=== PATIENT | male | born 1950 | race Caucasian/White ===

== ENCOUNTER 2024-01-25 13:59 | Inpatient (IN) | payer OTHER, MEDICARE ==
[~2024-01-25] VITALS: Ht 182.9 cm; Wt 86.2 kg
[2024-01-25 14:10] VITALS: BP_SYST 136; PULSE 77; RESP 18; TEMP 98; O2SAT 95
[2024-01-25 15:38] LABS: BASOPHILS # (AUTO) 0.1 K/uL (0.0-0.2); BASOPHILS % (AUTO) 0.7 % (0.0-2.0); EOSINOPHILS # (AUTO) 0.1 K/uL (0.0-0.4); HEMATOCRIT 42.9 % (36-54); HEMOGLOBIN 14.9 g/dL (14.0-18.0); LYMPHOCYTES # (AUTO) 1.6 K/uL (1.0-5.5); LYMPHOCYTES % (AUTO) 12.6 % (20.5-51.5); MEAN CORPUSCULAR HEMOGLOBIN 34 pg (27-31); MEAN CORPUSCULAR HGB CONC 35 % (32-36); MEAN CORPUSCULAR VOLUME 99 fL (79.0-98.0); MONOCYTES # (AUTO) 1.4 K/uL (0.0-1.0); MONOCYTES % (AUTO) 11.5 % (1.7-9.3); NEUTROPHILS # (AUTO) 9.2 K/uL (1.8-7.7); NEUTROPHILS % (AUTO) 74.2 % (40.0-70.0); PLATELET COUNT (AUTO) 208 K/uL (130-430); RED BLOOD CELL COUNT(AUTO) 4.35 MIL/uL (4.2-6.2); RED CELL DISTRIBUTION WIDTH 12.7 % (9.0-15.0); WHITE BLOOD COUNT (AUTO) 12.4 K/uL (4.8-10.8)
[2024-01-25 15:45] LABS: INR 1.1 (0.80-1.20); PROTHROMBIN TIME 11.7 SECS (9.5-12.5)
[2024-01-25 15:49] LABS: ANION GAP 10 (5-15); CALCIUM 9.2 mg/dL (8.4-11.0); CARBON DIOXIDE 27 mmol/L (23-29); CHLORIDE 100 mmol/L (98-107); CREATINE KINASE, TOTAL 154 U/L (39-308); CREATININE 1.01 mg/dL (0.55-1.30); GLUCOSE 158 mg/dL (74-106); POTASSIUM 4.1 mmol/L (3.5-5.1); SODIUM SERUM 137 mmol/L (136-145); UREA NITROGEN, BLOOD 15 mg/dL (8-21)
[2024-01-25] MEDS ORDERED: ONDANSETRON HCL 4 MG/2 ML VIAL IVP PRN (17:30)
[2024-01-25] MEDS ORDERED: ZOLPIDEM TARTRATE 5 MG TABLET PO PRN (17:30)
[2024-01-25] MEDS ORDERED: LORazepam 2 MG/ML VIAL IVP PRN (17:30)
[2024-01-25] MEDS ORDERED: ACETAMINOPHEN 325 MG TABLET PO PRN ×2 (17:30→17:45)
[2024-01-25] MEDS ORDERED: cefTRIAXone 1 GM VIAL ONE (17:35)
[2024-01-25] MEDS: cefTRIAXone 1 GM in D5W 50 ML IV ONE (17:40)
[2024-01-25] MEDS ORDERED: AZIT-93 PO (17:44)
[2024-01-25 17:51] VITALS: BP_SYST 132; PULSE 79; O2SAT 95
[2024-01-25 17:54] LABS: BILIRUBIN,URINE NEGATIVE (NEGATIVE); BLOOD, URINE NEGATIVE (NEGATIVE); CLARITY/URINE CLEAR (CLEAR); COLOR,URINE YELLOW (YELLOW); GLUCOSE,URINE NEGATIVE (NEGATIVE); KETONES,URINE TRACE (NEGATIVE); LEUKOCYTE ESTERASE ,URINE NEGATIVE (NEGATIVE); NITRITE, URINE NEGATIVE (NEGATIVE); PH,URINE 6.5 (5.0-8.0); PROTEIN URINE NEGATIVE (NEGATIVE); UROBILINOGEN,URINE 0.2 (0.2-1.0)
[2024-01-25] MEDS: HYDROcodone/ACETAMIN 5-325 MG TAB (NORCO/ VICODIN) PO PRN (18:33)
[2024-01-25] MEDS: NACL 0.9% 1,000 ML IV SCH (18:38)
[2024-01-25 19:20] VITALS: O2SAT 97
[2024-01-25] MEDS ORDERED: ALBUTEROL (19:20)
[2024-01-25] MEDS ORDERED: IPRA4AER INH (19:20)
[2024-01-25] MEDS: IPRATROPIUM BROM 0.5 MG/2.5 ML VIAL.NEB (ATROVENT) INH PRN (19:25)
[2024-01-25] MEDS: ALBUTEROL SULFATE 0.083% 2.5 MG/3 ML VIAL.NEB INH PRN (19:25)
[2024-01-25 20:45] VITALS: BP_SYST 129; PULSE 77; RESP 18; TEMP 97.5; O2SAT 96
[2024-01-25 23:45] VITALS: O2SAT 97
[2024-01-26] VITALS (10 sets, daily range): BP systolic 90–123; PULSE 69–80; RESP 16–20; TEMP 97–99.1; O2SAT 94–95
[2024-01-26 06:00] LABS: BASOPHILS % (AUTO) 0.6 % (0.0-2.0); EOSINOPHILS # (AUTO) 0.2 K/uL (0.0-0.4); EOSINOPHILS % (AUTO) 2.3 % (0.0-4.0); HEMATOCRIT 39.1 % (36-54); HEMOGLOBIN 13.7 g/dL (14.0-18.0); LYMPHOCYTES # (AUTO) 1.5 K/uL (1.0-5.5); LYMPHOCYTES % (AUTO) 19.1 % (20.5-51.5); MEAN CORPUSCULAR HEMOGLOBIN 35 pg (27-31); MEAN CORPUSCULAR HGB CONC 35 % (32-36); MEAN CORPUSCULAR VOLUME 99 fL (79.0-98.0); MONOCYTES % (AUTO) 12.9 % (1.7-9.3); NEUTROPHILS # (AUTO) 5.2 K/uL (1.8-7.7); NEUTROPHILS % (AUTO) 65.1 % (40.0-70.0); PLATELET COUNT (AUTO) 163 K/uL (130-430); RED BLOOD CELL COUNT(AUTO) 3.93 MIL/uL (4.2-6.2); RED CELL DISTRIBUTION WIDTH 12.4 % (9.0-15.0)
[2024-01-26 06:48] LABS: ALANINE AMINOTRANSFERASE 28 U/L (12-78); ALBUMIN 2.9 g/dL (3.4-4.8); ANION GAP 8 (5-15); ASPARTATE AMINOTRANSFERASE 17 U/L (10-37); CALCIUM 8.1 mg/dL (8.4-11.0); CARBON DIOXIDE 27 mmol/L (23-29); CHLORIDE 104 mmol/L (98-107); CREATININE 0.77 mg/dL (0.55-1.30); GLUCOSE 144 mg/dL (74-106); POTASSIUM 3.7 mmol/L (3.5-5.1); SODIUM SERUM 139 mmol/L (136-145); TOTAL PROTEIN, SERUM 6.1 g/dL (6.4-8.3); UREA NITROGEN, BLOOD 12 mg/dL (8-21)
[2024-01-26] MEDS: HYDROmorphone 2 MG/ML VIAL ONE (09:46)
[2024-01-26] MEDS: AZITHROMYCIN 250 MG TABLET PO SCH (14:54)
[2024-01-26] MEDS: HEPARIN SODIUM,PORCINE 5,000 UNITS/ML VIAL SUBCUT SCH (21:00)
[2024-01-27] VITALS: BP_SYST 128; PULSE 74; RESP 16; TEMP 98.6; O2SAT 93
[2024-01-27] MEDS: guaiFENesin/DEXTROMETHORPHAN 1 EACH TAB.ER.12H PO PRN (04:51)
[2024-01-27 06:02] LABS: BASOPHILS # (AUTO) 0.1 K/uL (0.0-0.2); BASOPHILS % (AUTO) 1.2 % (0.0-2.0); EOSINOPHILS # (AUTO) 0.2 K/uL (0.0-0.4); HEMATOCRIT 39.2 % (36-54); HEMOGLOBIN 13.7 g/dL (14.0-18.0); LYMPHOCYTES # (AUTO) 1.5 K/uL (1.0-5.5); LYMPHOCYTES % (AUTO) 18.8 % (20.5-51.5); MEAN CORPUSCULAR HEMOGLOBIN 35 pg (27-31); MEAN CORPUSCULAR HGB CONC 35 % (32-36); MEAN CORPUSCULAR VOLUME 99 fL (79.0-98.0); MONOCYTES % (AUTO) 12.6 % (1.7-9.3); NEUTROPHILS # (AUTO) 5.3 K/uL (1.8-7.7); NEUTROPHILS % (AUTO) 64.4 % (40.0-70.0); PLATELET COUNT (AUTO) 172 K/uL (130-430); RED BLOOD CELL COUNT(AUTO) 3.97 MIL/uL (4.2-6.2); RED CELL DISTRIBUTION WIDTH 12.5 % (9.0-15.0); WHITE BLOOD COUNT (AUTO) 8.2 K/uL (4.8-10.8)
[2024-01-27 06:33] LABS: ANION GAP 9 (5-15); CALCIUM 8.2 mg/dL (8.4-11.0); CARBON DIOXIDE 26 mmol/L (23-29); CHLORIDE 104 mmol/L (98-107); CREATININE 0.72 mg/dL (0.55-1.30); GLUCOSE 143 mg/dL (74-106); POTASSIUM 3.8 mmol/L (3.5-5.1); SODIUM SERUM 139 mmol/L (136-145); UREA NITROGEN, BLOOD 17 mg/dL (8-21)
[2024-01-27 09:16] VITALS: O2SAT 93
[2024-01-27] MEDS: BUDESONIDE 0.5 MG/2 ML AMPUL.NEB INH SCH (09:16)
[2024-01-27 10:53] VITALS: BP_SYST 116; PULSE 72; RESP 15; TEMP 98.8; O2SAT 94
[2024-01-27 15:47] VITALS: BP_SYST 119; PULSE 70; RESP 15; TEMP 98.6; O2SAT 94
[2024-01-27 20:01] VITALS: BP_SYST 132; PULSE 83; RESP 18; TEMP 98.4; O2SAT 93
[2024-01-27 20:18] VITALS: O2SAT 95
[2024-01-27] MEDS: HYDROcodone/ACETAMIN 10-325 MG TAB PO PRN (22:07)
[2024-01-28 00:35] VITALS: BP_SYST 136; PULSE 74; RESP 16; TEMP 96.9; O2SAT 95
[2024-01-28 08:05] VITALS: PULSE 69; O2SAT 95
[2024-01-28 08:38] VITALS: BP_SYST 100; PULSE 66; RESP 18; TEMP 97.8
[2024-01-28 12:15] VITALS: BP_SYST 130; PULSE 71; RESP 20; TEMP 97.7; O2SAT 95
[2024-01-28] MEDS ORDERED: CEFAZOLIN 2 GM IVPB PREMIX 50 ML IV ONE (15:05)
[2024-01-28] MEDS ORDERED: ONDANSETRON HCL 4 MG/2 ML VIAL IVP PRN (16:30)
[2024-01-28] MEDS ORDERED: HYDROmorphone 2 MG/ML VIAL IVP PRN (16:30)
[2024-01-28] MEDS ORDERED: HYDROmorphone 1 MG/ML INJ. CARTRIDGE IVP PRN (16:30)
[2024-01-28 20:02] VITALS: O2SAT 91
[2024-01-28 20:22] VITALS: BP_SYST 120; PULSE 85; RESP 20; TEMP 97.6; O2SAT 92
[2024-01-28] MEDS: NACL 0.9% 1,000 ML IV SCH (20:22)
[2024-01-28] MEDS: ceFAZolin SODIUM 2 GM in D5W 100 ML IV SCH (22:06)
[2024-01-29] VITALS: BP_SYST 108; PULSE 81; RESP 18; TEMP 97; O2SAT 94
[2024-01-29 06:40] LABS: BASOPHILS # (AUTO) 0.1 K/uL (0.0-0.2); BASOPHILS % (AUTO) 0.6 % (0.0-2.0); EOSINOPHILS # (AUTO) 0.2 K/uL (0.0-0.4); EOSINOPHILS % (AUTO) 2.7 % (0.0-4.0); HEMATOCRIT 37.3 % (36-54); HEMOGLOBIN 13.2 g/dL (14.0-18.0); LYMPHOCYTES # (AUTO) 1.2 K/uL (1.0-5.5); LYMPHOCYTES % (AUTO) 13.2 % (20.5-51.5); MEAN CORPUSCULAR HEMOGLOBIN 35 pg (27-31); MEAN CORPUSCULAR HGB CONC 36 % (32-36); MEAN CORPUSCULAR VOLUME 100 fL (79.0-98.0); MONOCYTES % (AUTO) 11.4 % (1.7-9.3); NEUTROPHILS # (AUTO) 6.3 K/uL (1.8-7.7); NEUTROPHILS % (AUTO) 72.1 % (40.0-70.0); PLATELET COUNT (AUTO) 189 K/uL (130-430); RED BLOOD CELL COUNT(AUTO) 3.75 MIL/uL (4.2-6.2); RED CELL DISTRIBUTION WIDTH 12.4 % (9.0-15.0); WHITE BLOOD COUNT (AUTO) 8.8 K/uL (4.8-10.8)
[2024-01-29 07:03] LABS: ANION GAP 8 (5-15); CALCIUM 8.9 mg/dL (8.4-11.0); CARBON DIOXIDE 27 mmol/L (23-29); CHLORIDE 104 mmol/L (98-107); CREATININE 0.85 mg/dL (0.55-1.30); GLUCOSE 131 mg/dL (74-106); POTASSIUM 3.9 mmol/L (3.5-5.1); SODIUM SERUM 139 mmol/L (136-145); UREA NITROGEN, BLOOD 24 mg/dL (8-21)
[2024-01-29 08:00] VITALS: BP_SYST 111; PULSE 70; RESP 18; TEMP 98.2; O2SAT 92
[2024-01-29 08:20] VITALS: O2SAT 93
[2024-01-29] MEDS ORDERED: fentaNYL CITRATE/PF 100 MCG/2 ML AMP ONE (09:19)
[2024-01-29] MEDS: ENOXAPARIN SODIUM 40 MG/0.4 ML SYRINGE SUBCUT SCH (10:07)
[2024-01-29 12:21] VITALS: BP_SYST 91; PULSE 93; RESP 16; TEMP 97.7; O2SAT 93
[2024-01-29 16:01] VITALS: BP_SYST 101; PULSE 84; RESP 16; TEMP 97.9; O2SAT 94
[2024-01-29 17:03] VITALS: BP_SYST 101; PULSE 84; RESP 16; TEMP 97.9; O2SAT 94
== END 2024-01-29 18:10 | DRG 481 ==
LOC: SED 13:59 → STU 17:23 → SMU 01-26 23:21
PROVIDERS: ADMIT Internal Medicine; ATTEND Internal Medicine
PROC: 0QSC36Z Reposition Left Lower Femur with Intramedullary Internal Fixation Device, Percutaneous Approach (ICD-10-PCS; principal; 2024-01-28 15:21)
DX: S72.115A Nondisplaced fracture of greater trochanter of left femur, initial encounter for closed fracture (principal); E44.1 Mild protein-calorie malnutrition; E87.20 Acidosis, unspecified; F17.210 Nicotine dependence, cigarettes, uncomplicated; J44.89 Other specified chronic obstructive pulmonary disease; W19.XXXA Unspecified fall, initial encounter; Z79.2 Long term (current) use of antibiotics; Z79.51 Long term (current) use of inhaled steroids; Z79.899 Other long term (current) drug therapy; Y93.89 Activity, other specified; Y92.89 Other specified places as the place of occurrence of the external cause; Y99.8 Other external cause status; Z68.25 Body mass index [BMI] 25.0-25.9, adult
CPT/HCPCS: 36415; 70450-TC; 71045; 72192-TC; 73502; 73560; 73721; 76000; 80048; 80053; 81001; 81003; 82550; 83605; 84484; 85025; 85610; 85730; 87040; 93005; 93306; 94070; 94640; 94664; 94760; 96361; 96365; 97110-GP; 97116-GP; 97163-GP; 97530-GP; 99291; A4649; C1713; G0378; J0690; J0696; J1170; J1644; J1650; J2370; J2405; J2704; J2765; J3010; J3490; J7030; J7060; J7626; Q0144